=== PATIENT | male | born 1975 | race Two or more races ===

== ENCOUNTER 2024-02-23 01:34 | Emergency (ER) | payer MEDICAID ==
[~2024-02-23] VITALS: Ht 177.8 cm; Wt 181.0 kg
[2024-02-23 01:39] VITALS: BP 176/100; PULSE 70; RESP 16; TEMP 98; O2SAT 99
[2024-02-23] MEDS ORDERED: TOPUD MT (05:29)
[2024-02-23] MEDS: ACETAMINOPHEN 325MG TABLET PO ONE (05:42)
== END 2024-02-23 05:55 | disposition home or self-care (01) ==
LOC: ER 01:34
DX: S00.83XA Contusion of other part of head, initial encounter (principal); Y04.0XXA Assault by unarmed brawl or fight, initial encounter; Y93.89 Activity, other specified; Y92.89 Other specified places as the place of occurrence of the external cause; Y99.8 Other external cause status
CPT/HCPCS: 70486; 99284